=== PATIENT | male | born 1995 | race Caucasian/White ===

== ENCOUNTER 2018-04-25 19:01 | Emergency (ER) | payer BC ==
[2018-04-25 21:04] LABS: ABS Basophils 0 10^3/ul (0-0.2); ABS Eosinophils 0.2 10^3/ul (0-0.6); ABS Lymphocytes 0.9 10^3/ul (1.0-4.8); ABS Neutrophils 10.5 10^3/ul (1.5-7.7); ABS Nucleated RBC 0 10^3/ul; Eosinophil % 1.5 %; Hematocrit 44 % (42-52); Hemoglobin 14.3 g/dl (14.0-18.0); Lymphocyte % 7.4 %; Mean Corpuscular HGB Conc 32 g/dl (31-36); Mean Corpuscular Hemoglobin 28 pg (27-31); Mean Corpuscular Volume 87 fL (80-94); Mean Platelet Volume 8.3 fL (7.4-10.4); Nucleated Red Blood Cells % 0; Platelet Count 245 10^3/ul (150-450); Red Blood Count 5.11 10^6/ul (4.00-5.40); Red Cell Distribution Width 15 % (10.5-15); White Blood Count 12.6 10^3/ul (3.5-10.8)
[2018-04-25 21:15] LABS: Urine Appearance Cloudy; Urine Bacteria Absent (Absent); Urine Bilirubin Negative (Negative); Urine Blood 2+ (Negative); Urine Color Yellow; Urine Glucose Negative (Negative); Urine Ketones Negative (Negative); Urine Nitrite Negative (Negative); Urine Protein Negative (Negative); Urine Red Blood Cell 3+(>10/hpf) (Absent); Urine Specific Gravity 1.013 (1.010-1.030); Urine Urobilinogen Negative (Negative); Urine White Blood Cell 1+(6-10/hpf) (Absent)
[2018-04-25 21:19] LABS: ALT 12 U/L (7-52); AST 18 U/L (13-39); Albumin 4.4 g/dL (3.2-5.2); Albumin/Globulin Ratio 1.4 (1-3); Alkaline Phosphatase 83 U/L (34-104); Anion Gap 5 mmol/L (2-11); BUN/Creatinine Ratio 13.3 (8-20); Blood Urea Nitrogen 14 mg/dL (6-24); CO2 Carbon Dioxide 30 mmol/L (22-32); Calcium 9.6 mg/dL (8.6-10.3); Chloride 102 mmol/L (101-111); Globulin 3.1 g/dL (2-4); Glucose 176 mg/dL (70-100); Potassium 4.2 mmol/L (3.5-5.0); Sodium 137 mmol/L (135-145); Total Protein 7.5 g/dL (6.4-8.9)
--- NOTE | 2018-04-26 02:26 | ED ---
Abdominal Pain/Male - HPI Summary HPI Summary: Patient complains of low-grade intermittent right lower quadrant pain 3 days, with pain increasing sharply today. History of recurrent the right lower quadrant pain over the past 2 years. History of kidney stones, followed by urology in [place]. Denies fever, cough, sore throat, CP, SOB, N/V/D, change in urine, change in BM. Denies blood in urine. - History of Current Complaint Chief Complaint: EDAbdPain Stated Complaint: ABD PAIN Time Seen by Provider: 04/25/18 22:28 Hx Obtained From: Patient Onset/Duration: Gradual Onset, Lasting Days Timing: Intermittent Severity Initially: Severe Severity Currently: Mild Pain Intensity: 3 Pain Scale Used: 0-10 Numeric Location: Discrete At: RLQ Radiates: No Character: Sharp, Dull Aggravating Factor(s): Nothing Alleviating Factor(s): Nothing Associated Signs And Symptoms: Positive: Negative - Allergies/Home Medications Allergies/Adverse Reactions: Allergies Allergy/AdvReac Type Severity Reaction Status Date / Time No Known Allergies Allergy Verified 04/25/18 19:06 PMH/Surg Hx/FS Hx/Imm Hx Endocrine/Hematology History: Denies: Hx Anticoagulant Therapy Cardiovascular History: Denies: Hx Cardiac Arrest History: Reports: Hx Kidney Stones Denies: Hx Dialysis Sensory History: Denies: Hx Eye Prosthesis Neurological History: Denies: Hx CVA Psychiatric History: Denies: Hx Autism Infectious Disease History: No Infectious Disease History: Reports: Traveled Outside the [place] in Last 30 Days - Social History Alcohol Use: Occasionally Substance Use Type: Reports: None Smoking Status (MU): Never Smoked Tobacco Review of Systems Constitutional: Negative Eyes: Negative ENT: Negative Cardiovascular: Negative Respiratory: Negative Positive: Abdominal Pain Genitourinary: Negative Musculoskeletal: Negative Skin: Negative Neurological: Negative Psychological: Normal All Other Systems Reviewed And Are Negative: Yes Physical Exam - Summary Physical Exam Summary: Patient has mild pain at time of exam. No pain with palpation of right lower quadrant or any other quadrant of abdomen. Triage Information Reviewed: Yes Vital Signs On Initial Exam: Initial Vitals Temp Pulse Resp BP Pulse Ox 98.4 F 56 16 153/97 99 04/25/18 19:05 04/25/18 19:05 04/25/18 19:05 04/25/18 19:05 04/25/18 19:05 Vital Signs Reviewed: Yes Appearance: Positive: Well-Appearing Skin: Positive: Warm Head/Face: Positive: Normal Head/Face Inspection Eyes: Positive: Normal Neck: Positive: Supple Respiratory/Lung Sounds: Positive: Clear to Auscultation Cardiovascular: Positive: Normal Abdomen Description: Positive: Nontender Musculoskeletal: Positive: Normal Neurological: Positive: Normal Psychiatric: Positive: Normal AVPU Assessment: Alert - [place] Coma Scale Best Eye Response: 4 - Spontaneous Best Motor Response: 6 - Obeys Commands Best Verbal Response: 5 - Oriented Coma Scale Total: 15 Diagnostics - Vital Signs Vital Signs Temp Pulse Resp BP Pulse Ox 04/26/18 01:22 53 118/62 96 04/26/18 01:12 55 102/62 95 04/26/18 01:00 51 97 04/26/18 00:22 123/63 97 04/26/18 00:00 50 97 04/25/18 23:59 50 97 04/25/18 23:52 55 135/79 98 04/25/18 23:22 50 131/74 96 04/25/18 23:00 49 98 04/25/18 22:54 52 130/74 97 04/25/18 22:24 53 96 04/25/18 22:22 49 144/74 96 04/25/18 21:19 98.4 F 51 16 142/75 98 04/25/18 19:05 98.4 F 56 16 153/97 99 - Laboratory Lab Results: Lab Results 04/25/18 04/25/18 04/25/18 Range/Units 20:54 20:54 21:05 WBC 12.6 H (3.5-10.8) 10^3/ul RBC 5.11 (4.00-5.40) 10^6/ul Hgb 14.3 (14.0-18.0) g/dl Hct 44 (42-52) % MCV 87 (80-94) fL MCH 28 (27-31) pg MCHC 32 (31-36) g/dl RDW 15 (10.5-15) % Plt Count 245 (150-450) 10^3/ul MPV 8.3 (7.4-10.4) fL Neut % (Auto) 83.1 % Lymph % (Auto) 7.4 % [place] % (Auto) 7.8 % Eos % (Auto) 1.5 % Baso % (Auto) 0.2 % Absolute Neuts (auto) 10.5 H (1.5-7.7) 10^3/ul Absolute Lymphs (auto) 0.9 L (1.0-4.8) 10^3/ul Absolute Monos (auto) 1.0 H (0-0.8) 10^3/ul Absolute Eos (auto) 0.2 (0-0.6) 10^3/ul Absolute Basos (auto) 0 (0-0.2) 10^3/ul Absolute Nucleated RBC 0 10^3/ul Nucleated RBC % 0 Sodium 137 (135-145) mmol/L Potassium 4.2 (3.5-5.0) mmol/L Chloride 102 (101-111) mmol/L Carbon Dioxide 30 (22-32) mmol/L Anion Gap 5 (2-11) mmol/L BUN 14 (6-24) mg/dL Creatinine 1.05 (0.67-1.17) mg/dL Est GFR ( Amer) 109.0 (>60) Est GFR (Non-Af Amer) 90.0 (>60) BUN/Creatinine Ratio 13.3 (8-20) Glucose 176 H (70-100) mg/dL Calcium 9.6 (8.6-10.3) mg/dL Total Bilirubin 0.40 (0.2-1.0) mg/dL AST 18 (13-39) U/L ALT 12 (7-52) U/L Alkaline Phosphatase 83 (34-104) U/L Total Protein 7.5 (6.4-8.9) g/dL Albumin 4.4 (3.2-5.2) g/dL Globulin 3.1 (2-4) g/dL Albumin/Globulin Ratio 1.4 (1-3) Lipase < 10 L (11.0-82.0) U/L Urine Color Yellow Urine Appearance Cloudy Urine pH 5.0 (5-9) Ur Specific [place] 1.013 (1.010-1.030) Urine Protein Negative (Negative) Urine Ketones Negative (Negative) Urine Blood 2+ A (Negative) Urine Nitrate Negative (Negative) Urine Bilirubin Negative (Negative) Urine Urobilinogen Negative (Negative) Ur Leukocyte Esterase Trace A (Negative) Urine WBC (Auto) 1+(6-10/hpf) A (Absent) Urine RBC (Auto) 3+(>10/hpf) A (Absent) Urine Bacteria Absent (Absent) Urine Glucose Negative (Negative) Result Diagrams: 04/25/18 20:54 04/25/18 20:54 Lab Statement: Any lab studies that have been ordered have been reviewed, and results considered in the medical decision making process. Abdominal Pain Fem Course/Dx - Course Course Of Treatment: Patient complains of low-grade intermittent right lower quadrant pain 3 days, with pain increasing sharply today. History of recurrent the right lower quadrant pain over the past 2 years. History of kidney stones, followed by urology in [place]. Denies fever, cough, sore throat , CP, SOB, N/V/D, change in urine, change in BM. Denies blood in urine. Physical exam:Patient has mild pain at time of exam. No pain with palpation of right lower quadrant or any other quadrant of abdomen. Vital signs within normal limits. White count 12.6. BGL 176. UA positive for RBC. CT abdomen pelvis positive for 5 mm stone at right UVJ. Patient sent home with strainer and Rx for hydrocodone. Patient understands and approves of plan. - Diagnoses Provider Diagnoses: Kidney stone on right side Discharge - Sign-Out/Discharge Documenting (check all that apply): Patient Departure - Discharge Plan Condition: Stable Disposition: HOME Prescriptions: HYDROcodone/ACETAMIN 5-325 MG* [[place] 5-325 TAB*] 1 tab PO TID 3 Days #10 tab MDD 3 tabs Patient Education Materials: Kidney Stones (ED), How to Strain Your Urine (ED) Referrals: No Primary Care Phys,NOPCP [Primary Care Provider] - Additional Instructions: Drink plenty of water to maintain hydration. Use strainer when urinating. Return to the ED for any new or worsening symptoms. - Billing Disposition and Condition Condition: STABLE Disposition: Home
[2018-04-26 02:51] VITALS: BP 126/76
== END 2018-04-26 02:30 | disposition home or self-care (01) ==
LOC: ED 19:01
DX: N13.2 Hydronephrosis with renal and ureteral calculous obstruction (principal); Z87.442 Personal history of urinary calculi
CPT/HCPCS: 36415; 74018; 74176; 80053; 81003; 81015; 83690; 85025; 87086; 99283